=== PATIENT | female | born 1995 | race Two or more races ===

== ENCOUNTER 2016-07-12 20:38 | Emergency (ER) | payer MEDICAID ==
[2016-07-12 20:47] VITALS: BP 106/72; PULSE 82; RESP 20; TEMP 97.7; O2SAT 96
[2016-07-12 21:23] LABS: RBC URINE 1590 /hpf (0-3); URINE BACTERIA MOD (<OCC); URINE BILIRUBIN NEGATIVE (NEGATIVE); URINE BLOOD 3+ (NEGATIVE); URINE COLOR Yellow (YELLOW); URINE GLUCOSE (UA) NORMAL (Normal); URINE KETONE NEGATIVE (NEGATIVE); URINE LEUKOCYTE ESTERASE 3+ Leu/uL (Negative); URINE PROTEIN 1+ mg/dL (NEGATIVE); URINE UROBILINOGEN NORMAL mg/dL (0.2-1.0); WBC URINE 215 /hpf (0-5)
--- NOTE | 2016-07-12 21:43 | C.PDOC ---
History Of Present Illness 20 y/o female presents to ED with c/o dysuria and frequency for 4 days. Patient reports PMHx of UTI feels the same. Denies fever, abdominal pain, nausea, vomiting, or other associated symptoms. Time Seen by Provider: 07/12/16 21:05 Chief Complaint (Nursing): Female Genitourinary History Per: Patient History/Exam Limitations: no limitations Onset/Duration Of Symptoms: Days Current Symptoms Are (Timing): Still Present Associated Symptoms: Urinary Symptoms. denies: Fever, Nausea, Vomiting Recent travel outside of the [place]: No Abnormal Vaginal Bleeding: No Past Medical History Reviewed: Historical Data, Nursing Documentation, Vital Signs Vital Signs: Last Vital Signs Temp 97.7 F 07/12/16 20:42 Pulse 82 07/12/16 20:42 Resp 20 07/12/16 20:42 BP 106/72 07/12/16 20:42 Pulse Ox 96 07/12/16 21:43 - Medical History PMH: No Chronic Diseases Family History: States: Unknown Family Hx - Social History Hx Alcohol Use: Yes Hx Substance Use: No - Immunization History Hx Tetanus Toxoid Vaccination: No Hx Influenza Vaccination: No Hx Pneumococcal Vaccination: No Review Of Systems Except As Marked, All Systems Reviewed And Found Negative. Constitutional: Negative for: Fever, Chills Gastrointestinal: Negative for: Nausea, Vomiting Genitourinary: Positive for: Dysuria, Frequency. Negative for: Vaginal Discharge, Pelvic Pain Skin: Negative for: Rash Physical Exam - Physical Exam Appears: Non-toxic, No Acute Distress Skin: Normal Color, Warm, Dry Head: Atraumatic, Normacephalic Oral Mucosa: Moist Chest: Symmetrical Cardiovascular: Rhythm Regular Respiratory: Normal Breath Sounds, No Rales, No Rhonchi, No Wheezing Gastrointestinal/Abdominal: Soft, No Tenderness, No Guarding, No Rebound Back: Normal Inspection, No CVA Tenderness Extremity: Normal ROM, Capillary Refill (< 2 sec. ) Neurological/Psych: Oriented x3, Normal Speech, Normal Cognition ED Course And Treatment O2 Sat by Pulse Oximetry: 96 (RA) Pulse Ox Interpretation: Normal Progress Note: Urinalysis ordered and reviewed. Treated with Macrobid and Pyridium. On reassessment, patient is resting comfortably, and is in no acute distress. Patient instructed to follow up with clinic/PMD within 1-2 days. Disposition Counseled Patient/Family Regarding: Diagnosis, Need For Followup, Rx Given - Disposition Referrals: Jb Junior MD [Medical Doctor] - Disposition: HOME/ ROUTINE Disposition Time: 21:41 Condition: STABLE Additional Instructions: Please follow up with PMD Increase PO fluids Return if worse Prescriptions: Nitrofurantoin Macrocrystals [Macrobid] 1 cap PO BID #14 cap Phenazopyridine HCl [Pyridium] 100 mg PO TID #6 tab Instructions: Urinary Tract Infection in Women (ED) - Clinical Impression Clinical Impression: UTI (urinary tract infection) - PA / ROLLER HAND / Resident Statement MD/DO has reviewed & agrees with the documentation as recorded. - Scribe Statement The provider has reviewed the documentation as recorded by the Stone Payne Provider Scribe Attestation: All medical record entries made by the Stone were at my direction and personally dictated by me. I have reviewed the chart and agree that the record accurately reflects my personal performance of the history, physical exam, medical decision making, and the department course for this patient. I have also personally directed, reviewed, and agree with the discharge instructions and disposition.
== END 2016-07-12 22:03 | disposition home or self-care (01) ==
LOC: C.ER 20:38
DX: N39.0 Urinary tract infection, site not specified (principal); B96.89 Other specified bacterial agents as the cause of diseases classified elsewhere

== ENCOUNTER 2017-05-21 17:57 | Emergency (ER) | payer MEDICAID ==
[2017-05-21 18:50] VITALS: BP 120/84; PULSE 99; RESP 20; TEMP 98.7; O2SAT 99
--- NOTE | 2017-05-21 19:56 | C.PDOC ---
History Of Present Illness 21 y/o female presents to the ER complaining of left knee pain since Sunday. States that she felt dizzy, and fell while walking down 2 steps, injuring the knee. She believes dizziness that day was due to lack of sleep and eating that day. Patient denies feeling dizzy since then and does not want to be evaluated for the dizziness. Just wants to make sure the knee is ok. Pain has improved since the injury and she is able to ambulate. No changes in sensation, other injury, or head trauma. Time Seen by Provider: 05/21/17 19:24 Chief Complaint (Nursing): Lower Extremity Problem/Injury History Per: Patient History/Exam Limitations: no limitations Onset/Duration Of Symptoms: Days (x3) Current Symptoms Are (Timing): Still Present - Knee Description Of Injury: Fell Past Medical History Reviewed: Historical Data, Nursing Documentation, Vital Signs Vital Signs: Last Vital Signs Temp 98.7 F 05/21/17 18:47 Pulse 99 H 05/21/17 18:47 Resp 20 05/21/17 18:47 BP 120/84 05/21/17 18:47 Pulse Ox 99 05/21/17 22:02 - Medical History PMH: No Chronic Diseases Surgical History: No Surg Hx Family History: States: Unknown Family Hx - Social History Hx Tobacco Use: No Hx Alcohol Use: Yes Hx Substance Use: No - Immunization History Hx Tetanus Toxoid Vaccination: No Hx Influenza Vaccination: No Hx Pneumococcal Vaccination: No Review Of Systems Except As Marked, All Systems Reviewed And Found Negative. Musculoskeletal: Positive for: Other (left knee pain) Neurological: Negative for: Weakness, Numbness (and tingling), Dizziness, Other (head injury) Physical Exam - Physical Exam Appears: Well, Non-toxic, No Acute Distress Skin: Normal Color, Warm, Dry Head: Atraumatic, Normacephalic Eye(s): bilateral: Normal Inspection, EOMI Nose: Normal Oral Mucosa: Moist Neck: Normal ROM, Supple Chest: Symmetrical Cardiovascular: Rhythm Regular Respiratory: Normal Breath Sounds, No Accessory Muscle Use, Other (speaking full sentences) Extremity: Normal ROM, No Calf Tenderness, No Deformity, No Swelling (or ecchymosis), Other ((+) Abrasion to the left knee with tenderness over the abrasion) Pulses: Left Dorsalis Pedis: Normal, Right Dorsalis Pedis: Normal Neurological/Psych: Oriented x3, Normal Speech, No Other (focal deficits) ED Course And Treatment O2 Sat by Pulse Oximetry: 99 (RA) Pulse Ox Interpretation: Normal - Other Rad x-ray left knee X-Ray: Interpreted by Me, Viewed By Me Interpretation: Negative fx, negative dis Progress Note: Ordered x-ray of left knee. Patient informed of negative x-ray result. Knee immobilizer placed. Stable for d/c home. Given copy of x-ray reading for further evaluation. Disposition Counseled Patient/Family Regarding: Studies Performed, Diagnosis, Need For Followup - Disposition Referrals: Jer Ortiz III, MD [Staff Provider] - Disposition: HOME/ ROUTINE Disposition Time: 21:16 Condition: STABLE Additional Instructions: Follow up with your primary medical doctor or clinic in 2-5 days for further evaluation. Take medications as prescribed. Return to the emergency department at any time if symptoms persist or worsen. Instructions: Knee Pain Forms: [email or web address] (Finnish), School Excuse - POA Present On Arrival: Falls Or Trauma - Clinical Impression Clinical Impression: Knee contusion - PA / HANDLE LATHE OPERATOR / Resident Statement MD/DO has reviewed & agrees with the documentation as recorded. - Scribe Statement The provider has reviewed the documentation as recorded by the Scribe (Marichuy Viera) All medical record entries made by the Scribe were at my direction and personally dictated by me. I have reviewed the chart and agree that the record accurately reflects my personal performance of the history, physical exam, medical decision making, and the department course for this patient. I have also personally directed, reviewed, and agree with the discharge instructions and disposition.
--- NOTE | 2017-05-22 08:42 | RAD ---
PROCEDURE: Left Knee Radiographs. HISTORY: Pain. COMPARISON: None. FINDINGS: BONES: Benign-appearing sclerosis and possible bone island foci medial tibial epiphysis and medial femoral condyles are noted. . No fracture. JOINTS: Normal. No osteoarthritis. JOINT EFFUSION: None. OTHER FINDINGS: None. IMPRESSION: No fracture or lytic lesion. Benign sclerotic foci- resembling bone islands.
== END 2017-05-21 21:21 | disposition home or self-care (01) ==
LOC: C.ER 17:57
DX: S80.02XA Contusion of left knee, initial encounter (principal); W10.9XXA Fall (on) (from) unspecified stairs and steps, initial encounter

== ENCOUNTER 2018-02-27 15:32 | Emergency (ER) | payer MEDICAID ==
[2018-02-27 15:41] VITALS: BP 108/76; PULSE 99; TEMP 98.2; O2SAT 98
[2018-02-27] MEDS ORDERED: Tmp-Smz 800 mg-160 mg DS Tab PO STA (16:01)
--- NOTE | 2018-02-27 16:03 | C.PDOC ---
History Of Present Illness 22 year old female presents to the ED for evaluation of a painful rash to her suprapubic abdominal fold which began two days ago. Patient has been squeezing the area and applying topical antibiotic ointment without relief. She denies fever, chills. Time Seen by Provider: 02/27/18 15:42 Chief Complaint (Nursing): Abnormal Skin Integrity History Per: Patient History/Exam Limitations: no limitations Onset/Duration Of Symptoms: Days (2) Current Symptoms Are (Timing): Still Present Quality Of Symptoms: Painful Additional History Per: Patient Past Medical History Reviewed: Historical Data, Nursing Documentation, Vital Signs Vital Signs: Last Vital Signs Temp 98.2 F 02/27/18 15:38 Pulse 99 H 02/27/18 15:38 Resp 16 02/27/18 15:38 BP 108/76 02/27/18 15:38 Pulse Ox 98 02/27/18 15:38 - Medical History PMH: No Chronic Diseases Surgical History: No Surg Hx Family History: States: Unknown Family Hx - Social History Hx Tobacco Use: No Hx Alcohol Use: Yes Hx Substance Use: No - Immunization History Hx Tetanus Toxoid Vaccination: No Hx Influenza Vaccination: No Hx Pneumococcal Vaccination: No Review Of Systems Constitutional: Negative for: Fever, Chills Skin: Positive for: Rash (painful, to suprapubic abdominal fold ) Physical Exam - Physical Exam Appears: Non-toxic, No Acute Distress Skin: Rash ([id number] area of cellulitis with central fluctuance beneath midline of abdominal panniculus. Android Developer: Vicki Dowell RN ) Head: Atraumatic, Normacephalic Eye(s): bilateral: Normal Inspection Oral Mucosa: Moist Neck: Supple Chest: Symmetrical, No Deformity Cardiovascular: Rhythm Regular, No Murmur Respiratory: Normal Breath Sounds, No Rales, No Rhonchi, No Wheezing Gastrointestinal/Abdominal: Soft, No Tenderness, No Guarding, No Rebound Extremity: Normal ROM Neurological/Psych: Oriented x3, Normal Speech, Normal Cognition ED Course And Treatment O2 Sat by Pulse Oximetry: 98 (on RA) Pulse Ox Interpretation: Normal Progress Note: Motrin PO and Bactrim PO given. Medical Decision Making Medical Decision Making: small area of cellulitis and foliculitis midline panniculus + small fluctuance, no drainable collection failed outpatient topical abx Disposition Doctor Will See Patient In The: Office Counseled Patient/Family Regarding: Studies Performed, Diagnosis - Disposition Referrals: Jb Junior MD [Medical Doctor] - Disposition: HOME/ ROUTINE Disposition Time: 16:03 Condition: GOOD Additional Instructions: bactrim DS (antibiotic) 1 tab every 12 hours to complete 5 days motrin 400-600 mg every 6 hours as needed warm compresses to the area 20/hour as needed do NOT squeeze- makes infection penetrate worse! outpatient follow-up as needed. Prescriptions: Sulfamethoxazole/Trimethoprim [Bactrim DS 800 mg-160 mg] 1 tab PO BID #9 tab Instructions: Cellulitis (Skin Infection), Adult (DC) Forms: [employer] (Uzbek) - Clinical Impression Clinical Impression: Cellulitis - Scribe Statement The provider has reviewed the documentation as recorded by the Scribe (Osiris Pennington) Provider Attestation: All medical record entries made by the Scribe were at my direction and personally dictated by me. I have reviewed the chart and agree that the record accurately reflects my personal performance of the history, physical exam, medical decision making, and the department course for this patient. I have also personally directed, reviewed, and agree with the discharge instructions and disposition.
[2018-02-27] MEDS ORDERED: Tmp-Smz 800 mg-160 mg DS Tab ONE (16:07)
[2018-02-27 16:09] VITALS: RESP 20
== END 2018-02-27 16:08 | disposition home or self-care (01) ==
LOC: C.ER 15:32
DX: L03.311 Cellulitis of abdominal wall (principal)